=== PATIENT | male | born 1935 | race Caucasian/White ===

== ENCOUNTER 2017-05-02 08:59 | Inpatient (IN) | payer MEDICARE ==
[~2017-05-02] VITALS: Ht 182.9 cm; Wt 103.7 kg
[2017-05-02 09:20] LABS: Calcium, Ionized (POC) 0.94 mmol/L (1.10-1.46); Chloride (POC) 102 mmol/L (98-108); Creatinine (POC) 4.3 mg/dL (0.8-1.3); Glucose (ISTAT POC) 191 mg/dL (70-99); Hemoglobin (POC) 12.6 g/dL (13.5-17.5); Potassium (POC) 5.6 mmol/L (3.5-5.5); Sodium (POC) 136 mmol/L (135-148); Total CO2 (POC) 19 mmol/L (21-32)
[2017-05-02 09:23] LABS: BASOPHILS ABSOLUTE AUTO 0.03 K/mm3 (0.00-0.23); BASOPHILS PERCENT AUTO 0 % (0-2); EOSINOPHILS PERCENT AUTO 0 % (0-6); Hematocrit 36.1 % (37.0-53.0); Hemoglobin 11.5 g/dL (13.5-17.5); IMMATURE GRAN ABSOLUTE AUTO 0.11 K/mm3 (0.00-0.10); IMMATURE GRAN PERCENT AUTO 1 % (0-1); LYMPHOCYTES ABSOLUTE AUTO 0.84 K/mm3 (0.84-5.20); LYMPHOCYTES PERCENT AUTO 4 % (21-46); MONOCYTES ABSOLUTE AUTO 1.02 K/mm3 (0.16-1.47); MONOCYTES PERCENT AUTO 5 % (4-13); Mean Corpuscular HGB 33.6 pg (26.0-34.0); Mean Corpuscular HGB Conc 31.9 g/dL (31.5-36.5); Mean Corpuscular Volume 106 fL (80-100); Mean Platelet Volume 12.5 fL (9.1-12.4); NEUTROPHILS PERCENT AUTO 91 % (41-73); Platelet Count 221 K/mm3 (150-400); RDW Coefficient Variation 14.1 % (11.7-14.2); RDW Standard Deviation 54.4 fL (35.1-46.3); Red Blood Cell Count 3.42 M/mm3 (4.30-5.90)
[2017-05-02 09:25] LABS: PCO2 Arterial 39.6 mmHg (35-45); PO2 Arterial 337 mmHg (80-100); pH Blood Arterial 7.19 (7.35-7.45)
[2017-05-02 09:37] LABS: International Normalized Ratio 1.11; Prothrombin Time Results 11.6 Sec (9.7-11.5)
[2017-05-02 10:06] LABS: Alanine Aminotransfer (ALT/SGP 67 U/L (12-78); Albumin, Blood 3.1 g/dL (3.4-5.0); Albumin/Globulin Ratio 0.6 (0.8-1.8); Alk Phos 157 U/L (50-136); Anion Gap 17 mmol/L (6-16); Aspartate Aminotrans (AST/SGOT 440 U/L (12-37); Bilirubin, Total 0.3 mg/dL (0.1-1.0); Blood Urea Nitrogen 65 mg/dL (8-24); Bun/Creatinine Ratio 16.4 (12.0-20.0); CO2, Blood 17 mmol/L (21-32); Calcium, Blood 7.7 mg/dL (8.5-10.1); Chloride, Blood 100 mmol/L (98-108); Creatinine, Blood 3.97 mg/dL (0.60-1.20); Globulin, Blood 4.9 g/dL (2.2-4.0); Glomerular Filtration Rate 16 (60-); Glucose, Blood 188 mg/dL (70-99); Magnesium, Blood 2.7 mg/dL (1.6-2.4); Potassium, Blood 5.5 mmol/L (3.5-5.5); Sodium, Blood 134 mmol/L (136-145); Troponin I 0.099 ng/mL (0.000-0.040)
[2017-05-02 10:43] LABS: Beta-hydroxybutyrate 2.2 mg/dL (0.2-2.8)
[2017-05-02 11:49] LABS: Creatine Kinase MB 286.7 ng/mL (0.0-3.6); Creatine Kinase MB Index Unable to Calculate (0.0-4.0)
[2017-05-02 14:07] LABS: Appearance, Urine Hazy (Clear); Bilirubin, Urine Neg (Neg); Blood, Urine 5+ (Neg); Color, Urine Yellow (P-Yellow); Glucose Qualitative, Urine Neg (Neg); Ketones, Urine Neg (Neg); Leukocyte Esterase, Urine 3+ (Neg); Nitrite, Urine Neg (Neg); Protein, Urine 2+ (Neg); Urobilinogen, Urine NORM (Normal)
[2017-05-02 14:44] LABS: Bacteria Many /hpf; White Blood Cells, Urine TNTC /hpf (0-5)
[2017-05-02 14:45] LABS: Red Blood Cells, Urine 50-100 /hpf (0-2); Squamous Epithelial Cells Few /hpf (Few)
[2017-05-02 16:11] LABS: BASOPHILS ABSOLUTE AUTO 0.03 K/mm3 (0.00-0.23); BASOPHILS PERCENT AUTO 0 % (0-2); EOSINOPHILS PERCENT AUTO 0 % (0-6); Hematocrit 32.7 % (37.0-53.0); Hemoglobin 10.2 g/dL (13.5-17.5); IMMATURE GRAN ABSOLUTE AUTO 0.14 K/mm3 (0.00-0.10); IMMATURE GRAN PERCENT AUTO 1 % (0-1); LYMPHOCYTES ABSOLUTE AUTO 0.91 K/mm3 (0.84-5.20); LYMPHOCYTES PERCENT AUTO 4 % (21-46); MONOCYTES ABSOLUTE AUTO 1.57 K/mm3 (0.16-1.47); MONOCYTES PERCENT AUTO 7 % (4-13); Mean Corpuscular HGB Conc 31.2 g/dL (31.5-36.5); Mean Corpuscular Volume 106 fL (80-100); Mean Platelet Volume 12.4 fL (9.1-12.4); NEUTROPHILS PERCENT AUTO 88 % (41-73); NRBC ABSOLUTE 0.05 K/mm3 (0.00-0.02); NRBC Auto 0.2 /100 WBC (0.0-0.2); Platelet Count 156 K/mm3 (150-400); RDW Coefficient Variation 14.1 % (11.7-14.2); RDW Standard Deviation 53.6 fL (35.1-46.3); Red Blood Cell Count 3.09 M/mm3 (4.30-5.90); White Blood Cell Count 21.85 K/mm3 (4.00-11.30)
[2017-05-02] MEDS ORDERED: ALBU90OI INH (16:32)
[2017-05-02] MEDS ORDERED: ALLO100 PO (16:33)
[2017-05-02] MEDS ORDERED: BUME2 PO (16:34)
[2017-05-02] MEDS ORDERED: ATOR40TA PO (16:34)
[2017-05-02] MEDS ORDERED: CALC.25 PO (16:35)
[2017-05-02] MEDS ORDERED: CHOL10002 (16:36)
[2017-05-02] MEDS ORDERED: CLIN1TS (16:37)
[2017-05-02] MEDS ORDERED: Chest Congesti400 MG PO (16:39)
[2017-05-02] MEDS ORDERED: Novolog Fl100 UNIT/1 INJ (16:41)
[2017-05-02] MEDS ORDERED: INSULANPEN SC (16:43)
[2017-05-02] MEDS ORDERED: LEVSOD50 PO (16:43)
[2017-05-02] MEDS ORDERED: MELA3 PO (16:44)
[2017-05-02] MEDS ORDERED: METO50ER PO (16:44)
[2017-05-02] MEDS ORDERED: GAVILAX17 GM PO (16:45)
[2017-05-02] MEDS ORDERED: SODBIC650 PO (16:46)
[2017-05-02 16:52] LABS: PCO2 Arterial 29.3 mmHg (35-45); PO2 Arterial 99.7 mmHg (80-100)
[2017-05-02 16:53] LABS: pH Blood Arterial 7.14 (7.35-7.45)
[2017-05-02 16:54] LABS: Anion Gap 22 mmol/L (6-16); Blood Urea Nitrogen 65 mg/dL (8-24); CO2, Blood 10 mmol/L (21-32); Calcium, Blood 6.8 mg/dL (8.5-10.1); Chloride, Blood 106 mmol/L (98-108); Creatinine, Blood 4.05 mg/dL (0.60-1.20); Glomerular Filtration Rate 15 (60-); Glucose, Blood 195 mg/dL (70-99); Potassium, Blood 6.7 mmol/L (3.5-5.5); Sodium, Blood 138 mmol/L (136-145)
== END 2017-05-02 18:38 | DRG 64 ==
LOC: ER 08:59 → ICUW 11:55
PROVIDERS: Emergency Medicine; Internal Medicine; Internal Medicine Critical Care Medicine
PROC: 0BH17EZ Insertion of Endotracheal Airway into Trachea, Via Natural or Artificial Opening (ICD-10-PCS; principal; 2017-05-02)
PROC: 5A1935Z Respiratory Ventilation, Less than 24 Consecutive Hours (ICD-10-PCS; 2017-05-02)
DX: I63.8 Other cerebral infarction (principal); J96.01 Acute respiratory failure with hypoxia; R57.9 Shock, unspecified; J96.02 Acute respiratory failure with hypercapnia; N17.9 Acute kidney failure, unspecified; Z51.5 Encounter for palliative care; E87.4 Mixed disorder of acid-base balance; I48.2 Chronic atrial fibrillation; K22.0 Achalasia of cardia; M62.82 Rhabdomyolysis; I13.0 Hypertensive heart and chronic kidney disease with heart failure and stage 1 through stage 4 chronic kidney disease, or unspecified chronic kidney disease; E11.22 Type 2 diabetes mellitus with diabetic chronic kidney disease; R40.2432 Glasgow coma scale score 3-8, at arrival to emergency department; I50.9 Heart failure, unspecified; N18.9 Chronic kidney disease, unspecified; E11.40 Type 2 diabetes mellitus with diabetic neuropathy, unspecified; I25.10 Atherosclerotic heart disease of native coronary artery without angina pectoris; E03.9 Hypothyroidism, unspecified; N40.0 Benign prostatic hyperplasia without lower urinary tract symptoms; E78.5 Hyperlipidemia, unspecified; M45.9 Ankylosing spondylitis of unspecified sites in spine; E66.9 Obesity, unspecified; Z66 Do not resuscitate; Z87.891 Personal history of nicotine dependence; Z68.31 Body mass index [BMI] 31.0-31.9, adult; Z79.02 Long term (current) use of antithrombotics/antiplatelets; Z79.4 Long term (current) use of insulin; Z79.899 Other long term (current) drug therapy; Z88.1 Allergy status to other antibiotic agents; Z87.440 Personal history of urinary (tract) infections; Z85.51 Personal history of malignant neoplasm of bladder; Z85.54 Personal history of malignant neoplasm of ureter; Z88.0 Allergy status to penicillin; Z88.2 Allergy status to sulfonamides; Z88.8 Allergy status to other drugs, medicaments and biological substances; Z88.5 Allergy status to narcotic agent
CPT/HCPCS: 31500; 36415; 36600; 51700; 51702; 70450; 80047; 80048; 80053; 81001; 82010; 82330; 82550; 82553; 82803; 83605; 83735; 84484; 85014; 85025; 85610; 85730; 87040; 87077; 87086; 87186; 93005; 93010; 94002; 96360; 99291; 99292; J0610; J1650; J2543; J3370; J3490; J7030; J7050; J7070; J7120